=== PATIENT | female | born 1975 | race Caucasian/White ===

== ENCOUNTER 2017-09-30 08:04 | Emergency (ER) | payer SELFPAY ==
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
[2017-09-30] MEDS ORDERED: Acetaminophen TAB* 325 MG PO ONE (09:47)
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
[2017-09-30 11:31] VITALS: BP 117/85
== END 2017-09-30 11:28 | disposition home or self-care (01) ==
LOC: ED 08:04
DX: S16.1XXA Strain of muscle, fascia and tendon at neck level, initial encounter (principal); S39.012A Strain of muscle, fascia and tendon of lower back, initial encounter; S80.02XA Contusion of left knee, initial encounter; V49.50XA Passenger injured in collision with unspecified motor vehicles in traffic accident, initial encounter; Y93.89 Activity, other specified; Y92.410 Unspecified street and highway as the place of occurrence of the external cause
CPT/HCPCS: 70450; 72125; 72131; 99283; A9270-GY

== ENCOUNTER 2018-01-22 10:59 | Emergency (ER) | payer BC, OTHER ==
[2018-01-22 12:02] VITALS: BP 118/79
[2018-01-22] MEDS ORDERED: Tetan/Diph/Pertus SYR(Tdap)* 0.5 ML SYR(BOOSTRIX) use SYR IM ONE (12:07)
--- NOTE | 2018-01-22 12:07 | UC ---
Laceration HPI - HPI Summary HPI Summary: 42 y/o female presents to the urgent care c/o ~1cm flap avulsion left heel after running into a nail yesterday. No active bleeding. Mild bleeding with pressure, Tetanus not up to date. - History Of Current Complaint Chief Complaint: [place] Stated Complaint: LEFT FOOT PUNCTURE WOUND Time Seen by Provider: 01/22/18 12:05 Hx Obtained From: Patient Hx Last Menstrual Period: 01/18/18 Pain Intensity: 0 - Allergies/Home Medications Allergies/Adverse Reactions: Allergies Allergy/AdvReac Type Severity Reaction Status Date / Time diazepam [From Valium] Allergy Hallucinati Verified 01/22/18 11:58 ons PMH/Surg Hx/FS Hx/Imm Hx Other History Of: Negative For: HIV, Hepatitis C - Surgical History Surgical History: Yes Surgery Procedure, Year, and Place: and Tubal Ligation, 2009, [place]; D &C, 2000, [place] - Family History Known Family History: Positive: Hypertension - Social History Alcohol Use: Occasionally Alcohol Amount: 1-2 DRINKS A MONTH Substance Use Type: None Smoking Status (MU): Never Smoked Tobacco - Immunization History Most Recent Tetanus Shot: "at least fifteen years" Physical Exam Vital Signs: Initial Vital Signs Temp 98.4 F 01/22/18 11:56 Pulse 64 01/22/18 11:56 Resp 16 01/22/18 11:56 BP 118/79 01/22/18 11:56 Pulse Ox 99 01/22/18 11:56 Laceration Course/Dx - Differential Dx - Laceration/Wound Differental Diagnoses: Abrasion, Avulsion, Cellulitis, Laceration, Puncture Wound, Tendon Laceration Provider Diagnoses: 1- left foot laceration repair. 2- left foot pain s/p laceration w/ a nail Discharge - Sign-Out/Discharge Documenting (check all that apply): Patient Departure - D/c home All imaging exams completed and their final reports reviewed: No Studies - Discharge Plan Condition: Stable Disposition: HOME Prescriptions: Bacitracin OINTMENT* 1 applic TOPICAL BID #1 tube Cephalexin CAP* [Keflex CAP*] 500 mg PO QID #28 cap Patient Education Materials: Laceration (ED), Skin Adhesive Care (ED) Referrals: Yanira Bautista MD [Primary Care Provider] - 1 Week Additional Instructions: 1-Please take full course of antibiotic to avoid resistance. 2- Keep wound clean and dry and avoid excessive movement w/ your left foot or standing for long periods of time 3-Take Ibuprofen or Tylenol PO q6-8hrs prn for pain or swelling. 4- If you develop fever, swelling or redness around your wound despite the antibiotic please go to the ER immediately or return to the Urgent care. - Billing Disposition and Condition Condition: STABLE Disposition: Home
== END 2018-01-22 12:42 | disposition home or self-care (01) ==
LOC: UCCORT 10:59
DX: Z88.8 Allergy status to other drugs, medicaments and biological substances (principal); S91.312A Laceration without foreign body, left foot, initial encounter; W22.8XXA Striking against or struck by other objects, initial encounter; Y93.02 Activity, running; Y92.9 Unspecified place or not applicable
CPT/HCPCS: 90471; 90715; 99212; G0463

== ENCOUNTER 2018-07-05 07:48 | Emergency (ER) | payer BC ==
[2018-07-05 08:08] VITALS: BP 148/89
[2018-07-05 08:25] LABS: Influenza A Molecular NEGATIVE (Negative); Influenza B Molecular NEGATIVE (Negative)
--- NOTE | 2018-07-05 09:00 | UC ---
FLU HPI - HPI Summary HPI Summary: 2 days of cough, congestion, headache, body aches, nausea and chills. No documented fever. - History of Current Complaint Chief Complaint: UCGeneralIllness Stated Complaint: NAUSEA, COLD SYMPTOMS Time Seen by Provider: 07/05/18 07:53 Hx Obtained From: Patient Hx Last Menstrual Period: now Onset/Duration: Gradual Onset, Lasting Days, Still Present Severity Currently: Moderate Severity Initially: Moderate Pain Intensity: 7 Pain Scale Used: 0-10 Numeric Associated Signs & Symptoms: Positive: Myalgia, Cough, Sore Throat, Nasal Congestion, Headache - Allergy/Home Medications Allergies/Adverse Reactions: Allergies Allergy/AdvReac Type Severity Reaction Status Date / Time diazepam [From Valium] Allergy Hallucinati Verified 01/22/18 11:58 ons Home Medications: Home Medications Acetaminophen TAB* [Tylenol TAB*] 650 mg PO PRN 07/05/18 [History] PMH/Surg Hx/FS Hx/Imm Hx Previously Healthy: Yes Other History Of: Negative For: HIV, Hepatitis C - Surgical History Surgical History: Yes Surgery Procedure, Year, and Place: and Tubal Ligation, 2009, [place]; D &C, 2000, [place] - Family History Known Family History: Positive: Hypertension - Social History Alcohol Use: Occasionally Alcohol Amount: 1-2 DRINKS A MONTH Substance Use Type: None Smoking Status (MU): Never Smoked Tobacco - Immunization History Most Recent Tetanus Shot: "at least fifteen years" Hx Tetanus, Diphtheria Vaccination: No Review of Systems All Other Systems Reviewed And Are Negative: Yes Constitutional: Positive: Chills, Fatigue. Negative: Fever ENT: Positive: Sore Throat, Nasal Discharge, Sinus Congestion Respiratory: Positive: Cough Cardiovascular: Positive: Negative Gastrointestinal: Positive: Nausea Musculoskeletal: Positive: Myalgia Neurological: Positive: Headache Physical Exam Triage Information Reviewed: Yes Appearance: No Pain Distress, Well-Nourished, Ill-Appearing - MOD Vital Signs: Initial Vital Signs Temp 98.9 F 07/05/18 08:03 Pulse 59 07/05/18 08:03 Resp 16 07/05/18 08:03 BP 148/89 07/05/18 08:03 Pulse Ox 96 07/05/18 08:03 Laboratory Tests 07/05/18 08:13 Influenza A (Rapid) Negative Influenza B (Rapid) Negative Vital Signs Reviewed: Yes Eyes: Positive: Conjunctiva Clear ENT: Positive: Hearing grossly normal, Pharynx normal, TMs normal Neck: Positive: Supple, Nontender, No Lymphadenopathy Respiratory Exam: Normal Cardiovascular Exam: Normal Abdomen Description: Positive: Soft, Other: - MILDLY TENDER. Negative: Distended, Guarding Musculoskeletal: Positive: No Edema Neurological: Positive: Alert Psychological: Positive: Age Appropriate Behavior Skin: Negative: Rashes Flu Course/Dx - Differential Dx/Diagnosis Provider Diagnosis: Acute viral syndrome Discharge - Sign-Out/Discharge Documenting (check all that apply): Patient Departure All imaging exams completed and their final reports reviewed: No Studies - Discharge Plan Condition: Stable Disposition: HOME Patient Education Materials: Viral Syndrome (ED) Forms: *Work Release Referrals: Yanira Bautista MD [Primary Care Provider] - If Needed Additional Instructions: FLU SWAB NEGATIVE. YOUR SYMPTOMS ARE STILL LIKELY VIRALLY MEDIATED AND SHOULD RESOLVE ON THEIR OWN WITH TIME. NO INDICATION FOR ANTIBIOTICS AT PRESENT. REST, HYDRATE, OTC MEDS NEEDED. WILL TREAT WITH PREDNISONE TO HELP WITH AIRWAY INFLAMMATION AND COUGH MEDICINE. SEEK FOLLOW-UP IF YOU ARE NOT IMPROVING OVER THE NEXT 1-2 WEEKS. YOUR BLOOD PRESSURE WAS ELEVATED TODAY (148/89). THIS MAY BE DUE TO YOUR ACUTE CONDITION. MONITOR AND FOLLOW-UP WITH YOUR PCP WITHIN 4 WEEKS IF IT HAS NOT RETURNED TO NORMAL. - Billing Disposition and Condition Condition: STABLE Disposition: Home
== END 2018-07-05 09:03 | disposition home or self-care (01) ==
LOC: UCEAST 07:48
DX: B34.9 Viral infection, unspecified (principal); Z88.8 Allergy status to other drugs, medicaments and biological substances
CPT/HCPCS: 99211; G0463